=== PATIENT | female | born 1950 | race Caucasian/White ===

== ENCOUNTER 2019-01-30 11:23 | Day surgery (SDC) ==
[2019-01-17 11:42] LABS: HEMATOCRIT 46.3 % (37.0-47.0); HEMOGLOBIN 15.4 g/dL (12.0-16.0); MCH 28.6 PG (27-31); MCHC 33.3 g/dL (33-37); MCV 85.9 FL (81-99); MPV 9.7 FL (7.4-10.4); RBC 5.39 XMIL (4.2-5.4); WBC 8.74 X1000 (4.8-10.8)
[2019-01-17 11:46] LABS: INR 0.91; PTT 27.9 Seconds (22.3-41.8)
[2019-01-17 11:59] LABS: AGAP 14; BUN 19 mg/dL (8-22); CHLORIDE 98 mmol/L (98-107); COSMO 284; CREATININE 0.7 mg/dL (0.5-0.9); ESTIMATED GFR > 60; GLUCOSE 99 mg/dL (70-104); POTASSIUM 4.1 mmol/L (3.5-5.1); SODIUM 141 mmol/L (136-145); TCO2 29 mmol/L (25-35)
--- NOTE | 2019-01-30 08:44 | HISTORY AND PHYSICAL ---
HISTORY OF PRESENT ILLNESS: A 69-year-old female with history of uterine prolapse, who underwent hysterectomy and bladder sling in 2017. She has slowly developed bladder prolapse, UTIs, and elevated postvoid residuals. Her symptoms are all worse with physical activity. She desires improvement. She was counselled on pessary in the past, and is not interested in that. She desires definitive surgical intervention. She underwent cystoscopy on 12/15/2018, which was unremarkable. Of note, per record review, she did undergo anterior repair with biologic graft in 04/2017. PAST MEDICAL HISTORY: Cystocele, stress urinary incontinence, hypothyroidism, coronary artery disease, hyperlipidemia, hypertension, allergic rhinitis. PAST SURGICAL HISTORY: Breast surgery, hysterectomy with anterior repair, bladder sling. MEDICATIONS: Zyrtec, meloxicam, lisinopril, Lipitor, aspirin, CoQ10, probiotics. ALLERGIES: Penicillin, sulfa, naproxen, cephalexin. FAMILY HISTORY: Positive for coronary artery disease and breast cancer. SOCIAL HISTORY: Denies tobacco, alcohol, or illicit drug use. PHYSICAL EXAMINATION: GENERAL: No acute distress. HEENT: Normocephalic, atraumatic. CARDIOVASCULAR: Regular rhythm. PULMONARY: Bilateral breath sounds. ABDOMEN: Nontender, nondistended. ASSESSMENT: A 69-year-old female with cystocele and vaginal wall prolapse, who has had one repair in the past. She was counseled in detail on cystocele repair with primary approach versus biologic tissue. We discussed that currently, pelvic mesh is not available. We discussed a transabdominal approach as well. She wants to proceed with cystocele repair with biologic tissue, vaginal approach. We also discussed de ajye stress urinary incontinence after prolapse repair, and pros and cons of Altis midurethral sling. She would like to proceed with a sling. Risks of cystocele repair with biologic tissue, extraperitoneal vaginal vault suspension, and midurethral sling, including but not limited to, bleeding, infection, injury to the bladder, injury to adjacent structures, failure to reduce cystocele, dyspareunia, significant scarring, and need for additional revisions were explained. We specifically discussed that the sling is made out of mesh, and hence she has risks associated with the use of mesh, such as mesh erosion or mesh infection, with either possibly leading to removal of portions or entire sling. We discussed the small risk of urinary retention. She voice understanding and wants to proceed. PLAN: Cystocele repair with biologic tissue, extraperitoneal vaginal vault suspension, Altis midurethral sling, cystoscopy. cc: Jakob Mcdonough MD
[2019-01-30] MEDS ORDERED: SENSORCAINE 0.5%-EPI 1:200,000 ONE (12:00)
[2019-01-30] MEDS ORDERED: BACITRACIN ONE (12:00)
[2019-01-30] MEDS ORDERED: SODIUM CHLORIDE 0.9% ONE (12:00)
[2019-01-30] MEDS ORDERED: METHYLENE BLUE 0.5% ONE (12:00)
[2019-01-30] MEDS ORDERED: SODIUM CHLORIDE 0.9% 10 ML ONE (12:01)
[2019-01-30] MEDS ORDERED: LR 1,000 ML ONE (12:15)
[2019-01-30] MEDS ORDERED: LEVAQUIN 500 MG/D5W 500 MG/100 ML IVPB ONE (12:15)
[2019-01-30] MEDS ORDERED: DIPRIVAN 1% ONE (12:25)
[2019-01-30] MEDS ORDERED: XYLOCAINE-MPF 2% ONE (12:25)
[2019-01-30] MEDS ORDERED: METROGEL-VAGINAL 0.75% GEL ONE (12:25)
[2019-01-30] MEDS ORDERED: NEOSPORIN G.U. IRRIGANT ONE (12:43)
[2019-01-30] MEDS ORDERED: FENTANYL ONE ×2 (13:38→14:25)
[2019-01-30] MEDS ORDERED: ZOFRAN ONE (13:54)
[2019-01-30] MEDS ORDERED: DECADRON ONE (13:54)
[2019-01-30 15:34] LABS: URINE SOURCE CATH
[2019-01-30] MEDS: MORPHINE ONE ×2 (15:46→15:49)
[2019-01-30 15:56] LABS: BILIRUBIN URINE NEGATIVE (NEGATIVE); BLOOD URINE MODERATE (NEGATIVE); COLOR YELLOW; GLUCOSE URINE NEGATIVE (NEGATIVE); KETONE URINE NEGATIVE (NEGATIVE); LEUKOCYTES URINE NEGATIVE (NEGATIVE); NITRITE URINE NEGATIVE (NEGATIVE); PH URINE 7.5; PROTEIN URINE NEGATIVE (NEGATIVE); SP GRAVITY URINE 1.007; TURBIDITY URINE CLEAR (CLEAR); UROBILINOGEN URINE NORMAL (NORMAL)
[2019-01-30 15:58] LABS: UR EPITHELIAL CELLS <10 /HPF (<10); URINE BACTERIA NEGATIVE /HPF; URINE RBC TNTC /HPF (<10); URINE WBC <10 /HPF (<10)
[2019-01-30] MEDS ORDERED: NS 1,000 ML ONE (16:04)
[2019-01-30] MEDS ORDERED: MORPHINE IV PRN (16:39)
[2019-01-30] MEDS ORDERED: PHENERGAN PR PRN (16:45)
[2019-01-30] MEDS ORDERED: BENADRYL LIQUID PO PRN (16:45)
[2019-01-30] MEDS ORDERED: DILAUDID IV PRN (16:45)
[2019-01-30] MEDS ORDERED: SODIUM CHLORIDE 0.9% INJ PRN (16:45)
[2019-01-30] MEDS ORDERED: ZOFRAN IV PRN (16:45)
[2019-01-30] MEDS ORDERED: PHENERGAN IV PRN (16:45)
[2019-01-30] MEDS ORDERED: NORCO-10 PO PRN (16:45)
[2019-01-30] MEDS ORDERED: NORCO-5 PO PRN (16:45)
[2019-01-30] MEDS ORDERED: NS 1,000 ML IV SCH (16:45)
[2019-01-30] MEDS ORDERED: BENADRYL IV PRN (16:45)
[2019-01-30] MEDS ORDERED: TYLENOL PO PRN (16:45)
[2019-01-30] MEDS ORDERED: PHENERGAN PO PRN (16:45)
[2019-01-30] MEDS ORDERED: LABETALOL IV PRN (16:45)
[2019-01-30] MEDS: NORCO-7.5 PO PRN ×2 (16:48→21:35)
[2019-01-30] MEDS: TORADOL IV SCH (18:45)
[2019-01-30] MEDS: COLACE PO SCH (21:35)
[2019-01-31] MEDS: TORADOL IV SCH ×4 (01:15→14:20)
[2019-01-31] MEDS: NORCO-7.5 PO PRN (04:54)
[2019-01-31 06:21] LABS: HEMATOCRIT 36.8 % (37.0-47.0); HEMOGLOBIN 12.2 g/dL (12.0-16.0); MCH 29.3 PG (27-31); MCHC 33.2 g/dL (33-37); MCV 88.5 FL (81-99); MPV 10.3 FL (7.4-10.4); RBC 4.16 XMIL (4.2-5.4); RDW 12.2 % (11.5-14.5); WBC 13.41 X1000 (4.8-10.8)
[2019-01-31 06:49] LABS: AGAP 16; BUN 19 mg/dL (8-22); CALCIUM 8.4 mg/dL (8.8-10.2); CHLORIDE 104 mmol/L (98-107); COSMO 292; CREATININE 0.7 mg/dL (0.5-0.9); ESTIMATED GFR > 60; GLUCOSE 193 mg/dL (70-104); POTASSIUM 3.4 mmol/L (3.5-5.1); SODIUM 143 mmol/L (136-145); TCO2 23 mmol/L (25-35)
[2019-01-31] MEDS ORDERED: PERIDEX MT SCH (09:00)
[2019-01-31] MEDS: COLACE PO SCH (10:08)
[2019-01-31] MEDS: LEVAQUIN 500 MG/D5W 500 MG/100 ML IVPB IV SCH ×2 (10:08→10:24)
[2019-01-31 12:26] VITALS: BP 120/50
--- NOTE | 2019-03-09 20:12 | OPERATIVE NOTE ---
PROCEDURE DATE: 01/30/2019 SURGEON: Jakob Mcdonough MD. PREOPERATIVE DIAGNOSES: 1. Symptomatic cystocele. 2. Vaginal vault prolapse. 3. History of stress urinary incontinence. POSTOPERATIVE DIAGNOSES: 1. Symptomatic cystocele. 2. Vaginal vault prolapse. 3. History of stress urinary incontinence. PROCEDURE: Cystocele repair with [place] dermis graft, extraperitoneal vaginal vault suspension, Altis mid urethral sling placement, cystourethroscopy x2. INDICATIONS: A 69-year-old female that has had hysterectomy with eventual resultant cystocele and vaginal prolapse. It is symptomatic. She complains of pressure with physical activity, sensation of incomplete voiding. She has also had stress urinary incontinence, but with cystocele worsening, the incontinence seemed to improve. She was counseled on the fact that reducing the cystocele may cause incontinence to recur and wants to proceed with Altis sling. She was also counseled on primary repair, mesh-assisted repair via abdominal approach, and vaginal repair with graft, and chose to proceed with the latter. She was specifically counseled on the risks of dyspareunia, failure to correct cystocele, cystocele recurrence, urinary retention, and need for additional interventions. FINDINGS: Cystourethroscopy after cystocele repair showing no evidence of bladder or urethral injury with bilateral clear ureteral efflux seen. Cystourethroscopy after Altis sling placement showing no evidence of urethral or bladder injury and bilateral clear ureteral efflux. DESCRIPTION OF PROCEDURE: After obtaining informed consent, patient was brought to the operating room. Perioperative antibiotics and laryngeal mask anesthesia were administered. She was placed in lithotomy position with her upper and lower extremities appropriately padded. She was prepped and draped in sterile fashion. Coloplast retractor was used for exposure. A 16-[place] López catheter was introduced with 10 mL of sterile water instilled in the balloon. Two Allis clamps were used to identify the level of bladder neck and vaginal vault. Then, 40 mL of Marcaine with epinephrine diluted 50:50 with normal saline was administered for local and hydrodissection. I then used a 15 blade to make a vaginal incision approximately 6 cm in length. Metzenbaum scissors were then used to dissect the anterior vaginal wall from the bladder. We utilized full thickness dissection technique. Eventually, the surgeon's finger was used to free the space around the bladder until sacrospinous ligaments were felt bilaterally. Dissection then ensued to the level of bladder neck, which was identified by gentle tug on the López balloon and to her cervix. We then placed 2-0 PDS suture x2 through her vaginal and tied the sutures. Subsequent to that, we prepared [place] dermis graft on the back table by soaking it in normal saline for several minutes. Then, we used an 8 x 12 piece and I used a marking pen to identify the appropriate piece of graft to be used given her anatomy. Subsequent to that, Digitex device was used to place PDS suture through the sacrospinous ligament approximately 2 cm medial to the ischial spine. This was done on both sides. Tugging on the suture confirmed appropriate placement. I then used Digitex device with angling the distal tip of the device and placed the sutures through the obturator internus membrane with again tugging identified appropriate placement. We then used a free needle and threaded the 4 sutures through the ends of [place] dermis. They were then tied. Free needle was also used to thread previously placed 2-0 PDS suture at the vaginal vault. I finally used a 2-0 PDS suture to secure the distal midline part of the graft to the level of the bladder neck. Subsequent to this, cystourethroscopy was performed with 70-degree lens. The bladder showed no evidence of graft seen, no evidence of trocar injury, no mucosal lesions. There were a few moderate trabeculations. No diverticula were seen. I was able to visualize bilateral clear ureteral efflux. We then copiously irrigated the wound. The graft was not overly redundant, and appeared to lie nicely and flat against the bladder with adequate suspension of the vaginal vault. Subsequent to that, I used 2-0 Vicryl suture in a running fashion to reapproximate paravaginal tissues to make sure we had graft tension free and to help with imbibition. Following that, the wound was irrigated and vaginal epithelium was closed with 2-0 Vicryl suture. I trimmed approximately 1.5 cm segment in width as she had redundant vaginal epithelium. Following that, attention was turned to placement of Altis mid urethral sling. Next, 10 mL of Marcaine with epinephrine diluted 50:50 with normal saline was used to hydrodissect and provide local anesthesia at the level of the mid urethra, followed by making approximately 3 cm incision over the mid urethra using Metzenbaum scissors to dissect periurethral tissues until surgeon's little finger was able to palpate the obturator membrane. We then opened the sling and prepared on the back table by soaking in saline. Helical trocars were used in the inside-out fashion per senior software qa engineer's instructions to introduce the sling through the obturator membrane on the right side and subsequently the left side. The sling appeared to lie flat on the urethra without kinking or redundancy. I used tightening suture and adjusted the tension to what appeared to be appropriate. Subsequent to that, the López catheter was removed and cystourethroscopy was performed with 70-degree lens. The urethra and bladder showed no evidence of injury. There was no evidence of sling. No mucosal lesions. I was able to visualize clear ureteral efflux bilaterally. Following that, we replaced López catheter with 10 mL of sterile water in the balloon. The wound was irrigated and 3-0 Vicryl running suture was used to close that incision in a running fashion. At the conclusion of the case, vaginal packing coated with Flagyl was used. She tolerated the procedure well, was extubated, and taken to PACU for further recovery. ESTIMATED BLOOD LOSS: 100 mL. COMPLICATIONS: None. SPECIMENS REMOVED: None to submit for pathology. Please note that the redundant vaginal epithelium was discarded. DRAINS: A 16-[place] López catheter. DISPOSITION: To PACU with packing in place and López catheter to gravity drainage. cc: Jakob Mcdonough MD [facility]
== END 2019-01-31 15:26 | disposition home or self-care (01) ==
LOC: 4N 11:23 → OPS 11:23
PROVIDERS: ATTEND Urology